=== PATIENT | male | born 1940 | race Caucasian/White ===

== ENCOUNTER → 2019-05-06 12:52 | Outpatient (CLI) | payer MEDICARE, SELFPAY ==
--- NOTE | 2019-05-10 11:47 | P.PFT.S_ITS ---
Pulmonary Function Test Referral & Results Date Patient Seen: 05/06/19 Requesting provider: Matt Mccoy Indication: Shortness of breath Results: The spirometry demonstrates an FVC of 4.56 L which is 109% of predict ed. The FEV1 was measured at 3.42 L which is 113% of predicted. The FEV1/FVC ratio was 75 which is 104% of predicted. Following the administration of bronchodilator there was no appreciable change to above normal numbers. Lung volumes show an SVC of 3.85 L which is 86% of predicted. The diffusing capacity was measured at 32.83 which is 101% of predicted. The maximum voluntary ventilation was mildly reduced Interpretation: This study demonstrates probably normal pulmonary function
== END ==
PROVIDERS: PCP Internal Medicine; Visit Provider Internal Medicine
DX: R06.02 Shortness of breath (principal); Z77.012 Contact with and (suspected) exposure to uranium
CPT/HCPCS: 94060; 94726; 94729

== ENCOUNTER → 2019-10-21 16:53 | Outpatient (ROUT) | payer MEDICARE, SELFPAY ==
[2019-10-21 17:09] LABS: Prothrombin Time 126.9 SECONDS (10.1-12.7)
[2019-10-21 17:27] LABS: INR 11.2 (0.9-1.3)
== END ==
PROVIDERS: PCP Internal Medicine; Visit Provider Internal Medicine
DX: I48.91 Unspecified atrial fibrillation (principal)
CPT/HCPCS: 85610

== ENCOUNTER → 2020-03-31 19:30 | Outpatient (ROUT) | payer MEDICARE, SELFPAY ==
[2020-03-31 19:45] LABS: Add Manual Diff / Slide Review NO; Basophils Absolute Auto 0 /uL (0-100); Basophils Percent Auto 0.3 % (0-2); Eosinophils Absolute Auto 300 /uL (0-450); Eosinophils Percent Auto 3.3 % (2-4); Hematocrit 46.2 % (41-53); Hemoglobin 15.2 g/dL (13.5-17.5); Lymphocytes Absolute Auto 3100 /uL (1100-4500); Lymphocytes Percent Auto 34.2 % (25-40); Mean Corpuscular HGB Conc 32.8 % (30-36); Mean Corpuscular Hemoglobin 31.1 PG (26-34); Mean Corpuscular Volume 94.5 fL (80-100); Monocytes Absolute Auto 900 /uL (0-900); Monocytes Percent Auto 9.8 % (3-14); Neutrophils Absolute Auto 4800 /uL (1500-7000); Neutrophils Percent Auto 52.4 % (50-75); Platelet Count 193 X10^3/uL (150-400); Red Blood Cell Count 4.88 X10^6/uL (4.5-5.9); Red Cell Distribution Width 13.5 % (11.6-14.8); White Blood Cell Count 9.1 X10^3/uL (4.5-11.0)
[2020-03-31 19:56] LABS: Aspartate Aminotransferase 30 IU/L (17-59); BUN Creatinine Ratio 17.3 (6-22); Blood Urea Nitrogen 19 mg/dL (9-20); Calcium 9.1 mg/dL (8.4-10.2); Carbon Dioxide 27 mmol/L (22-32); Chloride 103 mmol/L (98-107); Cholesterol 167 mg/dL (140-199); Estimated Glomerular Filt Rate > 60.0 mL/min (>60); Glucose 104 mg/dL (80-110); HDL Cholesterol 23 mg/dL (40-60); HEMOLYSIS 22 (0-50); LDL Cholesterol Calculated 87 mg/dL (<100); Potassium 4.4 mmol/L (3.4-5.1); Sodium 138 mmol/L (137-145); Triglycerides 284 mg/dL (35-150)
[2020-03-31 20:24] LABS: TSH w/ Reflex to FT4 2.22 uIU/mL (0.47-4.68)
== END ==
PROVIDERS: PCP Internal Medicine; Visit Provider Student in an Organized Health Care Education/Training Program
DX: I48.91 Unspecified atrial fibrillation (principal); I10 Essential (primary) hypertension
CPT/HCPCS: 80048; 80061; 84443; 84450; 85025